=== PATIENT | female | born 1945 | race Caucasian/White ===

== ENCOUNTER → 2020-12-07 08:01 | Outpatient (CLI) | payer MEDICARE, OTHER, SELFPAY ==
[2020-12-07 09:20] LABS: Add Manual Diff / Slide Review NO; Basophils Absolute Auto 0 /uL (0-100); Basophils Percent Auto 0.7 % (0-2); Eosinophils Absolute Auto 100 /uL (0-450); Eosinophils Percent Auto 0.9 % (2-4); Hematocrit 41.5 % (36-46); Lymphocytes Absolute Auto 1200 /uL (1100-4500); Lymphocytes Percent Auto 20.6 % (25-40); Mean Corpuscular HGB Conc 33.6 % (30-36); Mean Corpuscular Hemoglobin 34.1 PG (26-34); Mean Corpuscular Volume 101.5 fL (80-100); Monocytes Absolute Auto 500 /uL (0-900); Monocytes Percent Auto 8.4 % (3-14); Neutrophils Absolute Auto 4100 /uL (1500-7000); Neutrophils Percent Auto 69.4 % (50-75); Platelet Count 187 X10^3/uL (150-400); Red Blood Cell Count 4.09 X10^6/uL (4.0-5.2); Red Cell Distribution Width 12.6 % (11.6-14.8); White Blood Cell Count 5.9 X10^3/uL (4.5-11.0)
[2020-12-07 09:57] LABS: Alanine Aminotransferase 30 IU/L (<35); Albumin 4.6 g/dL (3.5-5.0); Albumin Globulin Ratio 1.7 (1.0-2.8); Alkaline Phosphatase 115 U/L (38-126); Aspartate Aminotransferase 89 IU/L (14-36); BUN Creatinine Ratio 10.4 (6-22); Bilirubin Total 0.8 mg/dL (0.2-1.3); Blood Urea Nitrogen 7 mg/dL (7-17); Calcium 10.3 mg/dL (8.4-10.2); Carbon Dioxide 25 mmol/L (22-32); Chloride 103 mmol/L (98-107); Cholesterol 252 mg/dL (140-199); Estimated Glomerular Filt Rate > 60.0 mL/min (>60); Globulin 2.7 g/dL (1.7-4.1); Glucose 126 mg/dL (80-110); HEMOLYSIS < 15 (0-50); Potassium 4.1 mmol/L (3.4-5.1); Sodium 139 mmol/L (137-145); Total Protein 7.3 g/dL (6.3-8.2); Triglycerides 118 mg/dL (35-150); VLDL Cholesterol Calculated 24 mg/dL (2-30)
[2020-12-07 09:59] LABS: Hemoglobin A1C% w Est Avg Glu 4.8 % (4.0-6.0)
[2020-12-07 10:06] LABS: HDL Cholesterol 144 mg/dL (40-60); LDL Cholesterol Calculated 84 mg/dL (<100)
[2020-12-07 10:52] LABS: Free T4, Direct Thyroxine 1.18 ng/dL (0.78-2.19)
== END ==
PROVIDERS: PCP Internal Medicine; Referring Provider Internal Medicine; Visit Provider Internal Medicine
DX: R25.1 Tremor, unspecified (principal); Z86.39 Personal history of other endocrine, nutritional and metabolic disease; Z13.6 Encounter for screening for cardiovascular disorders; J45.909 Unspecified asthma, uncomplicated
CPT/HCPCS: 36415; 80053; 80061; 83036; 84439; 84443; 85025

== ENCOUNTER 2024-06-25 10:18 | Emergency (ER) | payer MEDICARE, OTHER, SELFPAY ==
[2024-06-25] VITALS (16 sets, daily range): BP systolic 131–188; BP diastolic 64–77; PULSE 77–105; RESP 16–22; TEMP 36.9; O2SAT 99–100; BMI 17.6
--- NOTE | 2024-06-25 10:52 | EKG_ITS ---
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
[2024-06-25 11:15] LABS: Add Manual Diff / Slide Review NO; Basophils Absolute Auto 0 /uL (0-100); Basophils Percent Auto 0.5 % (0-2); Eosinophils Absolute Auto 100 /uL (0-450); Eosinophils Percent Auto 2.1 % (2-4); Hematocrit 41.2 % (36-46); Hemoglobin 13.9 g/dL (12.0-16.0); Lymphocytes Absolute Auto 1000 /uL (1100-4500); Lymphocytes Percent Auto 19.2 % (25-40); Mean Corpuscular HGB Conc 33.8 % (30-36); Mean Corpuscular Hemoglobin 34.5 PG (26-34); Monocytes Absolute Auto 600 /uL (0-900); Monocytes Percent Auto 10.2 % (3-14); Neutrophils Absolute Auto 3700 /uL (1500-7000); Platelet Count 157 X10^3/uL (150-400); Red Blood Cell Count 4.04 X10^6/uL (4.0-5.2); Red Cell Distribution Width 12.6 % (11.6-14.8); White Blood Cell Count 5.4 X10^3/uL (4.5-11.0)
[2024-06-25 11:21] LABS: INR 0.9 (0.9-1.3); Prothrombin Time 9.7 SECONDS (9.4-12.5)
[2024-06-25 11:23] LABS: Ammonia (NH3) < 9 umol/L (9-30)
[2024-06-25 11:24] LABS: Alanine Aminotransferase 20 IU/L (<35); Albumin 4.4 g/dL (3.5-5.0); Albumin Globulin Ratio 1.6 (1.0-2.8); Alkaline Phosphatase 138 U/L (38-126); Aspartate Aminotransferase 47 IU/L (14-36); BUN Creatinine Ratio 29.6 (6-22); Bilirubin Total 0.6 mg/dL (0.2-1.3); Blood Urea Nitrogen 16 mg/dL (7-17); Calcium 9.4 mg/dL (8.4-10.2); Carbon Dioxide 26 mmol/L (22-32); Chloride 102 mmol/L (98-107); Estimated Glomerular Filt Rate > 60 mL/min (>60); Ethanol (ETOH) < 10 mg/dL; Globulin 2.7 g/dL (1.7-4.1); Glucose 90 mg/dL (80-110); Lactate (Lactic Acid) 1.1 mmol/L (0.7-2.1); PTT Partial Thromboplastin Tim 34 SECONDS (25.1-36.5); Potassium 4.4 mmol/L (3.4-5.1); Sodium 136 mmol/L (137-145); Total Protein 7.1 g/dL (6.3-8.2)
[2024-06-25 11:26] LABS: HEMOLYSIS 77 (0-50)
[2024-06-25 11:55] LABS: Thyroid Stimulating Hormone 3.46 uIU/mL (0.47-4.68)
[2024-06-25 12:41] LABS: Bilirubin Urine UA NEGATIVE (NEGATIVE); Color Urine UA YELLOW; Glucose Urine UA NEGATIVE (Negative); Ketones Urine UA NEGATIVE (NEGATIVE); Leukocyte Esterase Urine UA 2+ (NEGATIVE); Nitrite Urine UA NEGATIVE (Negative); Occult Blood Urine UA NEGATIVE (Negative); Protein Urine UA NEGATIVE (Negative); Urobilinogen Urine UA 0.2 E.U./dL (0.2)
[2024-06-25 12:44] LABS: Ur Creatinine Normal (Normal); Ur Specific Gravity Normal (Normal); Urine Amphetamines Negative (Negative); Urine Barbiturates Negative (Negative); Urine Benzodiazepines Positive (Negative); Urine Cocaine Negative (Negative); Urine MDMA Negative (Negative); Urine Methadone Negative (Negative); Urine Methamphetamines Negative (Negative); Urine Opiates Negative (Negative); Urine Oxycodone Negative (Negative); Urine Phencyclidine Negative (Negative); Urine THC Positive (Negative); Urine Tricyclic Antidepressant Negative (Negative); Urine pH Normal (Normal)
[2024-06-25 12:49] LABS: Appearance Urine UA SL CLOUDY; Bacteria Urine Few (2-10); RBC Urine 0-1/HPF (0-5/HPF); Squamous Epithelial Cell Urine 1-5 /HPF (0-5/HPF); Urine Volume 10mL (spun); WBC Urine 1-5/HPF (0-5/HPF)
--- NOTE | 2024-06-25 12:56 | PC.NURSE ---
patient brought in by EMS for increasing confusion, thought her was not her , is currently being worked up for alzheimers. Is oriented to self and place but thinks its Jeannie and doesn't know why she is at the hospital.
--- NOTE | 2024-06-25 14:00 | PC.NURSE ---
Patient asked where her florinda was, this RN went and grabbed him from the lobby. Patient recognized and was happy to see him. This RN asked if he wanted to talk with social work about resources at home, he refused at this time he has help from MARISA Wynn
--- NOTE | 2024-06-25 14:47 | ED.AMS ---
HPI - Altered Mental Status General Chief Complaint: Altered Mental Status Stated Complaint: Hallucinations Time Seen by Provider: 06/25/24 10:32 Source: patient and EMS Mode of arrival: EMS History of Present Illness HPI narrative: 79-year-old female with history of dementia, recent brain imaging last month April 2024 showed small meningioma done as part of her dementia workup, had been on sertraline for 1-1/2 years which was weaned off, more recently replaced with mirtazapine for the last 10 days on stable dose. Has been on donepezil 5 mg dose for the last 4 weeks, increase to 10 mg dose 2 days ago. Noted to have some hallucinations by , noting patient to imagine that she is holding items when there is nothing present. No fall injury. No fevers or chills. No other changes in medications. Not known to be drinking alcohol or using any drugs. No incontinence of urine, no fevers or chills. Related Data Home Medications Medication Instructions Recorded Confirmed [milk thistle] ##0 01/10/17 03/23/19 calcium carbonate 650 mg PO ##0 01/10/17 03/23/19 multivitamin (Multiple Vitamins 1 tab PO QDAY ##0 01/10/17 03/23/19 tablet) omeprazole magnesium 20 mg 20 mg PO ##0 01/10/17 03/23/19 tablet,delayed release (Prilosec OTC) Previous Rx's Medication Instructions Recorded albuterol sulfate 90 mcg/actuation 0 IH SEE INSTRUCTIONS ##1 01/10/17 aerosol inhaler (Proventil HFA) benzonatate 100 mg capsule 100 mg PO Q6HP PRN #60 caps 01/10/17 (Tessalon Perles) albuterol sulfate 90 mcg/actuation 2 puff inhalation Q4-6H PRN 03/23/19 aerosol inhaler bronchospasm #8.5 grams azithromycin 250 mg tablet See Rx Instructions PO .COMPLEX #6 03/23/19 tabs Allergies Allergy/AdvReac Type Severity Reaction Status Date / Time No Known Allergies Allergy Uncoded 06/25/24 10:32 Review of Systems Review of Systems Narrative: See HPI Patient History Social History Smoking Status: Former smoker Smoking Status: Former smoker alcohol intake frequency: a few times a month Alcohol type: beer Substance Use Type: does not use Exam Narrative Exam Narrative: GENERAL: Well-developed patient, in mild distress. HEAD: Atraumatic. Normocephalic. EYES: Pupils equal round and reactive. Extraocular motions intact. No scleral icterus. No injection or drainage. ENT: Nose without bleeding, purulent drainage. Throat without erythema, tonsillar hypertrophy or exudate. Airway patent. NECK: Trachea midline. Non tender CARDIOVASCULAR: Regular rate and rhythm without murmurs, gallops, or rubs. RESPIRATORY: Clear to auscultation. Breath sounds equal bilaterally. No wheezes, rales, or rhonchi. GASTROINTESTINAL: Abdomen soft, non-tender, nondistended. EXTREMITIES: No edema or joint tenderness. BACK: Nontender without deformity or crepitance. No flank tenderness. NEURO: AOx3. Motor functions grossly nonfocal SKIN: No rash or erythema of visible areas Initial Vital Signs Initial Vital Signs: Vital Signs Temperature 98.4 F 06/25/24 10:20 Pulse Rate 93 H 06/25/24 10:20 Respiratory Rate 16 06/25/24 10:20 Blood Pressure 170/77 H 06/25/24 10:20 Pulse Oximetry 99 06/25/24 10:20 Oxygen Delivery Method Room Air 06/25/24 10:20 Course Orders Ordered: ED Orders 06/25/24 10:33 EKG-12 Lead Stat 06/25/24 11:02 Ammonia (NH3) Stat Complete Blood Count AUTO DIFF Stat Comprehensive Metabolic Panel Stat Ethanol (ETOH) Stat Lactate (Lactic Acid) Stat PTT Partial Thromboplastin Isacc Stat Prolactin Stat Prothrombin Time INR Stat Thyroid Stimulating Hormone Stat 06/25/24 11:50 Blood Culture Stat 06/25/24 12:31 Urinalysis and Microscopic Stat Urine Culture Stat Urine Drug Screen, Rapid Stat Vital Signs Vital signs: Vital Signs - 8 hr 06/25/24 10:20 06/25/24 10:25 06/25/24 10:25 Temperature 98.4 F Pulse Rate 93 H 94 H Respiratory Rate 16 Blood Pressure 170/77 H 170/77 H Pulse Oximetry 99 99 Oxygen Delivery Method Room Air 06/25/24 10:30 06/25/24 10:30 06/25/24 11:00 Temperature Pulse Rate 97 H Respiratory Rate Blood Pressure 163/77 H 144/69 H Pulse Oximetry 100 Oxygen Delivery Method 06/25/24 11:00 06/25/24 11:30 11/30/24 11:30 Temperature Pulse Rate 91 H 85 Respiratory Rate Blood Pressure 132/64 Pulse Oximetry 99 100 Oxygen Delivery Method 06/25/24 12:00 06/25/24 12:32 06/25/24 12:51 Temperature Pulse Rate 93 H 105 H Respiratory Rate Blood Pressure 131/72 Pulse Oximetry 100 99 Oxygen Delivery Method 06/25/24 12:51 06/25/24 13:00 06/25/24 13:00 Temperature Pulse Rate 104 H 91 H Respiratory Rate 19 20 Blood Pressure 145/67 H Pulse Oximetry 99 100 Oxygen Delivery Method 06/25/24 13:30 06/25/24 13:30 06/25/24 14:00 Temperature Pulse Rate 79 Respiratory Rate Blood Pressure 132/66 145/67 H Pulse Oximetry 99 Oxygen Delivery Method Room Air 06/25/24 14:00 Temperature Pulse Rate 85 Respiratory Rate 17 Blood Pressure Pulse Oximetry 99 Oxygen Delivery Method MDM - Altered Mental Status Lab Data Attestation: I reviewed the patient's lab results. Lab results narrative: White blood cell count 5400, hemoglobin 13.9, platelets adequate. Basic metabolic panel unremarkable. Liver functions unremarkable. Urinalysis without obvious infection. Urine tox screen positive for benzodiazepine and marijuana. Alcohol level negative. 06/25/24 11:02 06/25/24 11:02 Labs: Lab Results 06/25/24 06/25/24 06/25/24 Range/Units 11:02 12:31 12:31 WBC 5.4 (4.5-11.0) X10^3/uL RBC 4.04 (4.0-5.2) X10^6/uL Hgb 13.9 (12.0-16.0) g/dL Hct 41.2 (36-46) % MCV 102.0 H (80-100) fL MCH 34.5 H (26-34) PG MCHC 33.8 (30-36) % RDW 12.6 (11.6-14.8) % Plt Count 157 (150-400) X10^3/uL Neut % (Auto) 68.0 (50-75) % Lymph % (Auto) 19.2 L (25-40) % [place] % (Auto) 10.2 (3-14) % Eos % (Auto) 2.1 (2-4) % Baso % (Auto) 0.5 (0-2) % Neut # (Auto) 3700 (3768-1825) /uL Lymph # (Auto) 1000 L (4403-9411) /uL [place] # (Auto) 600 (0-900) /uL Eos # (Auto) 100 (0-450) /uL Baso # (Auto) 0 (0-100) /uL PT 9.7 (9.4-12.5) SECONDS INR 0.9 (0.9-1.3) APTT 34 (25.1-36.5) SECONDS Sodium 136 L (137-145) mmol/L Potassium 4.4 (3.4-5.1) mmol/L Chloride 102 (98-107) mmol/L Carbon Dioxide 26 (22-32) mmol/L BUN 16 (7-17) mg/dL Creatinine 0.54 (0.52-1.04) mg/dL Estimated GFR > 60 (>60) mL/min BUN/Creatinine Ratio 29.6 H (6-22) Glucose 90 (80-110) mg/dL Lactate 1.1 (0.7-2.1) mmol/L Calcium 9.4 (8.4-10.2) mg/dL Total Bilirubin 0.6 (0.2-1.3) mg/dL AST 47 H (14-36) IU/L ALT 20 (<35) IU/L Alkaline Phosphatase 138 H (38-126) U/L Ammonia < 9 L (9-30) umol/L Total Protein 7.1 (6.3-8.2) g/dL Albumin 4.4 (3.5-5.0) g/dL Globulin 2.7 (1.7-4.1) g/dL Albumin/Globulin Ratio 1.6 (1.0-2.8) TSH 3.46 (0.47-4.68) uIU/mL Prolactin 10.0 (3.0-18.6) ng/mL Urine Color Yellow Urine Appearance Sl cloudy Urine pH 7.0 Normal (4.5-8.0) Ur Specific [place] 1.010 (1.000-1.035) Urine Protein Negative (Negative) Urine Glucose (UA) Negative (Negative) g/dL Urine Ketones Negative (NEGATIVE) Urine Occult Blood Negative (Negative) Urine Nitrate Negative (Negative) Urine Bilirubin Negative (NEGATIVE) Urine Urobilinogen 0.2 (0.2) E.U./dL Ur Leukocyte Esterase 2+ H (NEGATIVE) Urine RBC 0-1/hpf (0-5/HPF) Urine WBC 1-5/hpf (0-5/HPF) Ur Squamous Epith Cells 1-5 /hpf (0-5/HPF) Urine Bacteria Few (2-10) H (None) Vol Urine Centrifuged 10ml (spun) U Opiates 300ng/mL cut Negative (Negative) Ur Oxycodone Screen Negative (Negative) Urine Methadone Screen Negative (Negative) Ur Barbiturates Screen Negative (Negative) U Tricyclic Antidepress Negative (Negative) Ur Phencyclidine Scrn Negative (Negative) Ur Amphetamines Screen Negative (Negative) U Methamphetamines Scrn Negative (Negative) Ur MDMA Scrn (Ecstasy) Negative (Negative) U Benzodiazepines Scrn Positive H (Negative) Urine Cocaine Screen Negative (Negative) U Marijuana (THC) Screen Positive H (Negative) Urine Specific [place] Normal (Normal) Ethyl Alcohol < 10 ( - 10) mg/dL Ur Creatinine Normal (Normal) Point of Care Testing Glucose POC 90 ECG Data Attestation: I personally reviewed and interpreted this ECG as follows: Interpretation: Normal sinus rhythm with rate of 89, no obvious ST segment elevation or depression changes. [place] 118, QRS 68, QTC 459. MDM Narrative Medical decision making narrative: 79-year-old female with history of dementia, recent chronic medication changes, having weaned off of sertraline and with replacement of mirtazapine 10 days ago, also dose change of donepezil 5 mg for the last 1 month, increased to 10 mg 2 days ago. Noted by to have hallucinosis today, imagining things that she has not holding to be holding. No fevers, no incontinence, no falls, not known to be drinking alcohol or use any drugs. No other medication change known. Afebrile, sirs screen negative. No obvious head injuries, we will hold CT head imaging for now. Patient/ in agreement. Possible reaction to recent multiple dose changes. Labs pending. Urine drug screen positive for benzodiazepine and for cannabis. Other screening labs unremarkable. Negative metabolic workup, consider hallucinosis due to recent increased donepezil dose two days ago, advised dose reduction from 10mg back to 5mg for now, recheck with PCP next days, home with who was agreeable to this plan, return precautions discussed Discharge Plan Departure Patient Disposition: Home Clinical Impression: Hallucinations, History of dementia Activity Restrictions/Additional Instructions: History of dementia, noted to have some visual hallucination today. Recent dose change donepezil from 5 mg to 10 mg 2 days ago, possibly related but unclear. We did screening labs to look for other causes. No definite urine infection, urine cultures pending at this time. No evidence for electrolyte disorder, kidney failure, liver failure, anemia, grossly obvious infection. We did discuss CT brain imaging, recent imaging last month showed small meningioma, which is not seem likely a cause for symptoms, no interim new trauma or injury, CT brain advanced imaging held for now. Mirtazapine medication has been used in place of sertraline, but stable dose for a while now, unclear if this is contributing to any confusion or hallucinosis. Consider also progression of underlying dementia, with component of hallucinosis. However since there is a dose change 2 days ago and hallucinosis noted today, consider reduction of donepezil back down to 5 mg for now. Recheck symptoms early this next week with your regular doctor. Return earlier to this/nearest emergency department for any change worsening symptoms or any concerns prior Prescriptions: No Action azithromycin 250 mg tablet See Rx Instructions PO .COMPLEX Qty: 6 0RF Rx Instructions: take 500 mg today (day 1), then 250 mg for 4 days (days 2-5) PO albuterol sulfate 90 mcg/actuation HFA aerosol inhaler 2 puff INHALATION Q4-6H PRN (Reason: bronchospasm) Qty: 8.5 0RF multivitamin [Multiple Vitamins] 1 EACH tablet 1 tab PO QDAY Qty: 0 calcium carbonate 650 MG tablet 650 mg PO Qty: 0 omeprazole magnesium [Prilosec OTC] 20 MG tablet,delayed release (DR/EC) 20 mg PO Qty: 0 [milk thistle] Qty: 0 benzonatate [Tessalon Perles] 100 MG capsule 100 mg PO Q6HP PRNQty: 60 0RF albuterol sulfate [Proventil HFA] 90 MCG/PUFF HFA aerosol inhaler 0 IH SEE INSTRUCTIONS Qty: 1 0RF Referrals: Amanda Ortiz MD [Primary Care Provider] - Stand Alone Forms: Patient Portal/API/Survey
== END 2024-06-25 16:26 | disposition home or self-care (01) ==
PROVIDERS: Emergency Provider Emergency Medicine; PCP Internal Medicine
DX: R44.1 Visual hallucinations (principal); Z86.69 Personal history of other diseases of the nervous system and sense organs
CPT/HCPCS: 36415; 80053; 80305; 80320; 81001; 82140; 82962; 83605; 84146; 84443; 85025; 85610; 85730; 87040; 87086; 93005; 99283; 99284

== ENCOUNTER 2024-07-21 01:30 | Emergency (ER) | payer MEDICARE, OTHER, SELFPAY ==
[2024-07-21] VITALS (8 sets, daily range): BP systolic 107–172; BP diastolic 60–81; PULSE 66–94; RESP 14–18; TEMP 36.8; O2SAT 98–100; BMI 17.9
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
--- NOTE | 2024-07-21 01:45 | PC.NURSE ---
21g butterfly needle for lab draw in left forearm without complications.
--- NOTE | 2024-07-21 01:47 | PC.NURSE ---
Pt to imaging via ED stretcher with tech
[2024-07-21 01:59] LABS: Add Manual Diff / Slide Review NO; Basophils Absolute Auto 100 /uL (0-100); Basophils Percent Auto 0.9 % (0-2); Eosinophils Absolute Auto 400 /uL (0-450); Eosinophils Percent Auto 5.5 % (2-4); Hematocrit 38.1 % (36-46); Hemoglobin 12.7 g/dL (12.0-16.0); Lymphocytes Absolute Auto 2000 /uL (1100-4500); Lymphocytes Percent Auto 29.3 % (25-40); Mean Corpuscular HGB Conc 33.3 % (30-36); Mean Corpuscular Hemoglobin 33.5 PG (26-34); Mean Corpuscular Volume 100.5 fL (80-100); Monocytes Absolute Auto 700 /uL (0-900); Neutrophils Absolute Auto 3600 /uL (1500-7000); Neutrophils Percent Auto 53.3 % (50-75); Platelet Count 249 X10^3/uL (150-400); Red Blood Cell Count 3.79 X10^6/uL (4.0-5.2); Red Cell Distribution Width 12.4 % (11.6-14.8); White Blood Cell Count 6.7 X10^3/uL (4.5-11.0)
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
[2024-07-21 02:06] LABS: Alanine Aminotransferase 19 IU/L (<35); Albumin 4.1 g/dL (3.5-5.0); Albumin Globulin Ratio 1.4 (1.0-2.8); Alkaline Phosphatase 114 U/L (38-126); Aspartate Aminotransferase 32 IU/L (14-36); BUN Creatinine Ratio 28.8 (6-22); Bilirubin Total 0.4 mg/dL (0.2-1.3); Blood Urea Nitrogen 21 mg/dL (7-17); Calcium 9.6 mg/dL (8.4-10.2); Carbon Dioxide 28 mmol/L (22-32); Chloride 105 mmol/L (98-107); Estimated Glomerular Filt Rate > 60 mL/min (>60); Globulin 2.9 g/dL (1.7-4.1); Glucose 98 mg/dL (80-110); HEMOLYSIS < 15 (0-50); Potassium 3.8 mmol/L (3.4-5.1); Sodium 139 mmol/L (137-145)
[2024-07-21] MEDS: QUETIAPINE 25 MG TABLET PO (02:35)
[2024-07-21 02:46] LABS: Acetaminophen < 10 ug/mL (10-30); Ethanol (ETOH) < 10 mg/dL; Salicylate < 1.0 mg/dL (<20)
[2024-07-21 03:17] LABS: Thyroid Stimulating Hormone 4.51 uIU/mL (0.47-4.68)
--- NOTE | 2024-07-21 06:38 | PC.NURSE ---
Pt not willing to lay in bed, has walked around department multiple times with staff, easily redirectable but forgets quickly what she was told.
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
== END 2024-07-21 12:29 | disposition home or self-care (01) ==
PROVIDERS: Emergency Provider Emergency Medicine; PCP Student in an Organized Health Care Education/Training Program
DX: F03.911 Unspecified dementia, unspecified severity, with agitation (principal); Z87.891 Personal history of nicotine dependence
CPT/HCPCS: 70450; 80053; 80320; 80329; 84443; 85025; 99283; 99284; G0480

== ENCOUNTER 2025-05-08 14:01 | Emergency (ER) | payer MEDICARE, OTHER, SELFPAY ==
[2025-05-08 14:09] VITALS: BP 180/92; PULSE 69; RESP 18; TEMP 36.7; O2SAT 99; BMI 24.2
--- NOTE | 2025-05-08 14:16 | DI.RAD.S_ITS ---
PROCEDURE: XR CHEST 1V INDICATIONS: Possible stroke TECHNIQUE: One view of the chest was acquired. COMPARISON: None. FINDINGS: Surgical changes and devices: Radiodensity projecting over the upper abdomen may be outside of the patient. Lungs and pleura: Lungs are clear. No pleural effusions or pneumothorax. Mediastinum: Mediastinal contours appear normal. Heart size is normal. Bones and chest wall: No suspicious bony lesions. Overlying soft tissues appear unremarkable. IMPRESSION: No acute cardiopulmonary abnormality is seen. Approved by: Justin Tavarez M.D. on 05/08/2025 at 16:08
[2025-05-08 14:32] LABS: Add Manual Diff / Slide Review NO; Hematocrit 39.6 % (36-46); Hemoglobin 13.3 g/dL (12.0-16.0); Lymphocytes Absolute Auto 1600 /uL (1100-4500); Mean Corpuscular HGB Conc 33.6 % (30-36); Mean Corpuscular Hemoglobin 32.1 PG (26-34); Mean Corpuscular Volume 95.6 fL (80-100); Platelet Count 209 X10^3/uL (150-400)
[2025-05-08 14:43] LABS: INR 0.9 (0.9-1.3); Prothrombin Time 10.3 SECONDS (9.4-12.5)
[2025-05-08 14:46] LABS: PTT Partial Thromboplastin Tim 33 SECONDS (25.1-36.5)
[2025-05-08 14:47] LABS: Alanine Aminotransferase 17 IU/L (<35); Albumin 4.8 g/dL (3.5-5.0); Albumin Globulin Ratio 1.6 (1.0-2.8); Alkaline Phosphatase 68 U/L (38-126); Blood Urea Nitrogen 10 mg/dL (7-17); Calcium 9.5 mg/dL (8.4-10.2); Carbon Dioxide 26 mmol/L (22-32); Chloride 104 mmol/L (98-107); Creatine Kinase 59 U/L (30-135); Estimated Glomerular Filt Rate > 60 mL/min (>60); Globulin 3.0 g/dL (1.7-4.1); Glucose 97 mg/dL (70-99); Potassium 4.1 mmol/L (3.4-5.1); Sodium 138 mmol/L (137-145); Total Protein 7.8 g/dL (6.3-8.2)
[2025-05-08 14:52] LABS: HEMOLYSIS 60 (0-50)
[2025-05-08 14:58] LABS: Troponin I < 0.012 ng/mL (0.01-0.034)
[2025-05-08 19:10] VITALS: BP 188/85; PULSE 89; RESP 16; TEMP 36.4; O2SAT 98
--- NOTE | 2025-05-08 21:03 | PC.NURSE ---
IV removed by this RN at 2058. IV was not placed by this RN
== END 2025-05-08 21:49 | disposition left against medical advice (07) ==
PROVIDERS: Emergency Medicine; Emergency Provider Emergency Medicine; PCP Student in an Organized Health Care Education/Training Program
DX: R42 Dizziness and giddiness (principal)
CPT/HCPCS: 36415; 71045; 80053; 82550; 84484; 85025; 85610; 85730; 99283